=== PATIENT | male | born 1955 | race Caucasian/White ===

== ENCOUNTER 2019-04-10 05:38 | Inpatient (IN) | payer OTHER ==
[2019-04-10 06:48] LABS: HEMATOCRIT 42.5 % (37.9-51.0); HEMOGLOBIN 14.1 g/dL (13.5-17.0); MEAN CORPUSCULAR HEMOGLOBIN 29.2 pg (27.0-33.4); MEAN CORPUSCULAR HGB CONC 33.2 g/dL (32.0-36.0); MEAN CORPUSCULAR VOLUME 88 fl (80-97); PLATELET COUNT 233 10^3/uL (150-450); RED BLOOD COUNT 4.83 10^6/uL (4.35-5.55); RED CELL DISTRIBUTION WIDTH 14.7 % (11.5-14.0)
--- NOTE | 2019-04-10 06:52 | EKG REPORT ---
SEVERITY:- BORDERLINE ECG - SINUS TACHYCARDIA PROBABLE LEFT ATRIAL ABNORMALITY BORDERLINE T WAVE ABNORMALITIES : Confirmed by: Vasile Arias MD 10-Apr-2019 06:51:59
[2019-04-10] MEDS ORDERED: ERTAPENEM SODIUM INJ 1 GM VIAL IV ONE (07:08)
[2019-04-10 07:09] LABS: ABSOLUTE LYMPHOCYTES# (MANUAL) 1.8 10^3/uL (0.5-4.7); ABSOLUTE MONOCYTES # (MANUAL) 1.2 10^3/uL (0.1-1.4); BASOPHILS % (MANUAL) 1 % (0-2); EOSINOPHILS % (MANUAL) 0 % (0-6); LYMPHOCYTES % (MANUAL) 6 % (13-45); MONOCYTES % (MANUAL) 4 % (3-13); SEGMENTED NEUTROPHILS % (MAN) 89 % (42-78); TOTAL CELLS COUNTED 100
[2019-04-10] MEDS ORDERED: MORPHINE SULFATE 10 MG/ML INJ IV ONE ×2 (07:09→11:13)
[2019-04-10] MEDS ORDERED: RINGERS SOLUTION,LACTATED 1,000 ML IV ONE (07:09)
[2019-04-10] MEDS ORDERED: ONDANSETRON HCL INJ/PF 4 MG/2 ML SDV IV ONE ×2 (07:09→11:13)
[2019-04-10 07:11] LABS: OVALOCYTES SLIGHT; PLATELET COMMENT ADEQUATE; POIKILOCYTOSIS SLIGHT; TOXIC GRANULATION SLIGHT; TOXIC VACUOLATION PRESENT
[2019-04-10 07:13] LABS: WHITE BLOOD COUNT 30.4 10^3/uL (4.0-10.5)
--- NOTE | 2019-04-10 07:35 | ER Document Report ---
Entered by SANTINO KIRK SCRIBE 04/10/19 0640 Acting as scribe for:LACEY CALIX MD ED GI/ - General Chief Complaint: Abdominal Pain Stated Complaint: UPPER RIGHT ABDOMINAL PAIN Time Seen by Provider: 04/10/19 06:30 Primary Care Provider: TRISHA GLORIA MD [Primary Care Provider] - Follow up as needed Mode of Arrival: Ambulatory Information source: Patient Notes: This 63 year old male patient presents to the emergency department today with complaints of right upper quadrant abdominal pain. Patient states he began with abdominal cramping which began about 24 hours ago along with a few episodes of vomiting. Patient states the pain was initially located in his epigastrium and seems to have migrated over to the right upper quadrant now. Patient states lying on his right side exacerbates his pain. Patient had a temperature of 102.8 at about midnight last night but did not take anything for it. Patient denies diarrhea. Pertinent PMHx/PSHx: Type 2 diabetes (insulin dependent) - additional PMHx/PSHx not pertinent to this visit as recorded. PCP: Dr. Gloria TRAVEL OUTSIDE OF THE [place] IN LAST 30 DAYS: No - Related Data Allergies/Adverse Reactions: No Known Allergies Allergy (Verified 04/10/19 06:01) Past Medical History - General Information source: Patient - Social History Smoking Status: Former Smoker - quit in the mid Cigarette use (# per day): No Chew tobacco use (# tins/day): No Frequency of alcohol use: Occasional Drug Abuse: None Occupation: Business van owner operator Lives with: Family Family History: Reviewed & Not Pertinent Patient has suicidal ideation: No Patient has homicidal ideation: No - Past Medical History Cardiac Medical History: Reports: Hx DVT, Hx Hypercholesterolemia, Hx Hypertension Endocrine Medical History: Reports: Hx Diabetes Mellitus Type 2 Surgical Hx: Negative Review of Systems - Review of Systems Constitutional: See HPI, Fever - 102.8 EENT: No symptoms reported Cardiovascular: No symptoms reported Respiratory: No symptoms reported Gastrointestinal: See HPI, Abdominal pain, Nausea, Vomiting. denies: Diarrhea Genitourinary: No symptoms reported Male Genitourinary: No symptoms reported Musculoskeletal: No symptoms reported Skin: No symptoms reported Hematologic/Lymphatic: No symptoms reported Neurological/Psychological: No symptoms reported -: Yes All other systems reviewed and negative Physical Exam - Vital signs Vitals: Temp Pulse Resp BP Pulse Ox 98.6 F 119 H 20 98/56 L 94 04/10/19 06:01 04/10/19 06:01 04/10/19 06:01 04/10/19 06:01 04/10/19 06:01 - Notes Notes: Physical Exam: General: Alert, appears uncomfortable. HEENT: Normocephalic. Atraumatic. PERRL. Extraocular movements intact. Oropharynx clear. Neck: Supple. Non-tender. Respiratory: No respiratory distress. Clear and equal breath sounds bilaterally. Cardiovascular: Regular rate and rhythm. Abdominal: Obese, protuberant abdomen, mild right upper quadrant tenderness with palpation, moderate epigastric tenderness with palpation. No distension. Normal Bowel Sounds. Back: No gross abnormalities. Extremities: Moves all four extremities. Upper extremities: Normal inspection. Normal ROM. Lower extremities: Chronic discoloration of lower extremities with venous stasis changes bilaterally, trace lower extremity edema. Neurological: Normal cognition. AAOx4. Normal speech. Psychological: Normal affect. Normal Mood. Skin: see lower extremity exam Course - Vital Signs Vital signs: Temp Pulse Resp BP Pulse Ox 98.6 F 119 H 16 121/73 96 04/10/19 06:01 04/10/19 06:01 04/10/19 07:30 04/10/19 07:30 04/10/19 08:37 - Laboratory Result Diagrams: 04/10/19 06:35 04/10/19 07:05 Laboratory results interpreted by me: 04/10/19 04/10/19 04/10/19 06:21 06:35 07:05 WBC 30.4 H* RDW 14.7 H Seg Neuts % (Manual) 89 H Lymphocytes % (Manual) 6 L Abs Neuts (Manual) 27.1 H Abs Basophils (Manual) 0.3 H BUN 25 H Glucose 131 H POC Glucose 137 H Lipase 16.7 L Urine Protein Urine Glucose (UA) Urine Ketones Urine Blood 04/10/19 08:35 WBC RDW Seg Neuts % (Manual) Lymphocytes % (Manual) Abs Neuts (Manual) Abs Basophils (Manual) BUN Glucose POC Glucose Lipase Urine Protein 100 H Urine Glucose (UA) >=500 H Urine Ketones TRACE H Urine Blood SMALL H - Diagnostic Test Radiology reviewed: Image reviewed, Reports reviewed - Gallbladder ultrasound shows gallstones in the gallbladder neck. No gallbladder wall thickening or pericholecystic fluid. No filling defects. CT scan of the abdomen with IV con trast shows gallstones with mild inflammatory changes in the pericholecystic tissues. No other significant or acute findings are seen. - EKG Interpretation by Me EKG shows normal: Sinus rhythm, [place], Intervals, QRS Complexes. abnormal: ST-T Waves - Borderline T wave abnormalities Rate: Tachycardia - 113 P Waves: LAE - Consults Dr. Ornelas Consulted provider: will come to ER Dr. Huizar Time consulted: 11:10 Consulted provider: will come to ER Critical Care Note - Critical Care Note Total time excluding time spent on procedures (mins): 45 Discharge - Discharge Clinical Impression: Cholelithiasis and acute cholecystitis without obstruction Leukocytosis (leucocytosis) Qualifiers: Leukocytosis type: unspecified Qualified Code(s): D72.829 - Elevated white blood cell count, unspecified Fever Qualifiers: Fever type: unspecified Qualified Code(s): R50.9 - Fever, unspecified Condition: Fair Disposition: ADMITTED INPATIENT Admitting Provider: Gaye (Hospitalist) Unit Admitted: [facility]U Referrals: TRISHA GLORIA MD [Primary Care Provider] - Follow up as needed I personally performed the services described in the documentation, reviewed and edited the documentation which was dictated to the scribe in my presence, and it accurately records my words and actions.
[2019-04-10 07:43] LABS: ALBUMIN 3.8 g/dL (3.5-5.0); ALKALINE PHOSPHATASE 114 U/L (38-126); ANION GAP 11 (5-19); ASPARTATE AMINO TRANSFERASE 26 U/L (17-59); BILIRUBIN,TOTAL 0.7 mg/dL (0.2-1.3); BLOOD UREA NITROGEN 25 mg/dL (7-20); CALCIUM 8.9 mg/dL (8.4-10.2); CARBON DIOXIDE 27 mmol/L (22-30); CHLORIDE 101 mmol/L (98-107); CREATINE KINASE 62 U/L (55-170); GLUCOSE 131 mg/dL (75-110); POTASSIUM 4.1 mmol/L (3.6-5.0); TOTAL PROTEIN 7.1 g/dL (6.3-8.2)
[2019-04-10] MEDS ORDERED: NORMAL SALINE 1000 ML 1,000 ML IV ONE ×3 (08:28→10:13)
--- NOTE | 2019-04-10 08:31 | RADIOLOGY REPORT (SQ) ---
EXAM DESCRIPTION: U/S ABDOMEN LIMITED W/O DOP COMPLETED DATE/TIME: 04/10/2019 8:10 am REASON FOR STUDY: epigastric and RUQ abd pain w/N V COMPARISON: None TECHNIQUE: Dynamic and static grayscale images acquired of the abdomen and recorded on PACS. Additio nal selected color Doppler and spectral images recorded. LIMITATIONS: Study limited due to acoustical interference from fat or from air in the bowel. FINDINGS: PANCREAS: Obscured. LIVER: No masses. No dilated ducts. LIVER VASCULATURE: Normal directional flow of the main portal vein and hepatic veins. GALLBLADDER: Small gallstones in the gallbladder neck. Normal wall thickness. No pericholecystic flui d. ULTRASOUND-DETECTED MOORE'S SIGN: Negative. INTRAHEPATIC DUCTS AND COMMON DUCT:CBD and intrahepatic ducts normal caliber. No filling defects. INFERIOR VENA CAVA: Normal flow. AORTA: No aneurysm. RIGHT KIDNEY: Normal size. Normal echogenicity. No solid or suspicious masses. No hydronephrosis. No calcifications. PERITONEAL AND PLEURAL SPACES: No ascites or effusions. OTHER: No other significant finding. IMPRESSION: GALLSTONES. NO OTHER SIGNIFICANT FINDING IN THE VISUALIZED ABDOMEN. TECHNICAL DOCUMENTATION: JOB ID: [id number] 2010 [employer]- All Rights Reserved Reading location - IP/workstation name: [email or web address]
[2019-04-10 09:52] LABS: APPEARANCE,URINE SLIGHTLY-CLOUDY; BILIRUBIN,URINE NEGATIVE (NEGATIVE); COLOR,URINE YELLOW; GLUCOSE, URINE >=500 mg/dL (NEGATIVE); KETONES,URINE TRACE mg/dL (NEGATIVE); LEUKOCYTE ESTERASE,URINE NEGATIVE (NEGATIVE); NITRITE,URINE NEGATIVE (NEGATIVE); PROTEIN,URINE 100 mg/dL (NEGATIVE); URINE SPECIFIC GRAVITY 1.021; UROBILINOGEN,URINE NEGATIVE mg/dL (<2.0)
--- NOTE | 2019-04-10 10:35 | RADIOLOGY REPORT (SQ) ---
EXAM DESCRIPTION: CT ABD/PELVIS WITH IV ONLY COMPLETED DATE/TIME: 04/10/2019 9:57 am REASON FOR STUDY: Leukocytosis, right upper quadrant abdominal pain COMPARISON: Ultrasound dated 04/10/2019. TECHNIQUE: CT scan of the abdomen and pelvis performed using helical scanning technique with dynamic intravenous contrast injection. No oral contrast. Images reviewed with lung, soft tissue, and bone windows. Reconstructed coronal and sagittal MPR images reviewed. Delayed images for evaluation of the urinary system also acquired. All images stored on PACS. All CT scanners at this facility use dose modulation, iterative reconstruction, and/or weight based d osing when appropriate to reduce radiation dose to as low as reasonably achievable (ALARA). [facility]: Dose Right [facility]: CareDose [facility]: Dose Right [facility]: Teradose 4D [facility]: Mailcloud CONTRAST TYPE AND DOSE: contrast/concentration: Isovue 350.00 mg/ml; Total Contrast Delivered: 100.0 ml; Total Saline Delivered: 59.1 ml RENAL FUNCTION: BUN 25 creatinine 1.22. RADIATION DOSE: CT Rad equipment meets quality standard of care and radiation dose reduction techniq ues were employed. CTDIvol: 18.4 - 19.8 mGy. DLP: 2270 mGy-cm.. LIMITATIONS: None. FINDINGS: LOWER CHEST: No significant findings. No nodules or infiltrates. LIVER: Normal size. No masses. No dilated ducts. SPLEEN: Normal size. No focal lesions. PANCREAS: No masses. No significant calcifications. No adjacent inflammation or peripancreatic fluid collections. Pancreatic duct not dilated. GALLBLADDER: Faint tiny calculi near the gallbladder neck. There is slightly hazy appearance of the pericholecystic tissues. No discrete fluid. ADRENAL GLANDS: No significant masses or asymmetry. RIGHT KIDNEY AND URETER: No solid masses. No significant calcifications. No hydronephrosis or hyd roureter. LEFT KIDNEY AND URETER: No solid masses. No significant calcifications. No hydronephrosis or hydr oureter. AORTA AND VESSELS: No aneurysm. No dissection. Renal arteries, SMA, celiac without stenosis. RETROPERITONEUM: No retroperitoneal adenopathy, hemorrhage or masses. BOWEL AND PERITONEAL CAVITY: No masses or inflammatory changes. No free fluid or peritoneal masses. APPENDIX: Normal. PELVIS: No mass. No free fluid. Normal bladder. ABDOMINAL WALL: No masses. No hernias. BONES: No significant or acute findings. OTHER: No other significant finding. IMPRESSION: 1. GALLSTONES. THERE IS SUGGESTION OF MILD INFLAMMATORY CHANGES IN THE PERICHOLECYSTIC TISSUES. MAY CONSIDER HEPATOBILIARY STUDY TO EVALUATE FOR POSSIBLE CHOLECYSTITIS. 2. NO OTHER SIGNIFICANT OR ACUTE FINDING IN THE ABDOMEN OR PELVIS ON CT SCAN WITH IV CONTRAST. TECHNICAL DOCUMENTATION: JOB ID: [id number] Quality ID # [id number]: Final reports with documentation of one or more dose reduction techniques (e.g., Au tomated exposure control, adjustment of the mA and/or kV according to patient size, use of iterative reconstruction technique) 2010 [employer]- All Rights Reserved Reading location - IP/workstation name: [email or web address]
--- NOTE | 2019-04-10 11:13 | PDOC CONSULTATION ---
Consultation Consult Date: 04/10/19 Provider Consulted: YASMIN ROSARIO Consult reason:: cholecystitis History of Present Illness Admission Date/PCP: TRISHA GLORIA MD History of Present Illness: KAILEE KIRK is a 63 year old male Past Medical History Cardiac Medical History: Reports: DVT, Hyperlipidema, Hypertension Endocrine Medical History: Reports: Diabetes Mellitus Type 2 Social History Lives with: Family Smoking Status: Former Smoker - quit in the mid Electronic Cigarette use?: No Family History Family History: Reviewed & Not Pertinent Parental Family History Reviewed: No Children Family History Reviewed: NA Sibling(s) Family History Reviewed.: NA Medication/Allergy Home Medications: Amlodipine Besylate 5 mg PO DAILY 07/01/14 Canagliflozin [Invokana] 300 mg PO DAILY 07/01/14 Cephalexin Monohydrate [Keflex 500 mg Capsule] 500 mg PO QID #28 capsule 07/01/14 Insulin Glargine,Hum.rec.anlog [Lantus] 2 units SUBCUT 07/01/14 Lisinopril/Hydrochlorothiazide [Lisinopril-Hctz 20-12.5 mg Tab] 12.5 mg PO DAILY 07/01/14 Metformin HCl [Glucophage] 1,000 mg PO DAILY 07/01/14 Rivaroxaban [Xarelto 10 mg Tablet] 10 mg PO BID 07/01/14 Allergies/Adverse Reactions: No Known Allergies Allergy (Verified 04/10/19 06:01) Review of Systems Constitutional: PRESENT: fever(s) Eyes: ABSENT: as per HPI, visual disturbances, other Ears: ABSENT: as per HPI, hearing changes, other Nose, Mouth, and Throat: ABSENT: as per HPI, headache(s), mouth pain, sore throat, vertigo, other Breasts: ABSENT: as per HPI, other Cardiovascular: ABSENT: as per HPI, chest pain, dyspnea on exertion, edema, orthropnea, palpitations, other Respiratory: ABSENT: as per HPI, cough, dyspnea, hemoptysis, sputum, other Genitourinary: ABSENT: as per HPI, difficulty urinating, dysuria, hematuria, nocturia, other Musculoskeletal: ABSENT: as per HPI, back pain, deformity, joint swelling, muscle weakness, other Integumentary: ABSENT: as per HPI, diaphoresis, erythema, lesions, pruritus, rash, wounds, other Neurological: ABSENT: as per HPI, abnormal gait, abnormal movements, abnormal speech, confusion, convulsions, dizziness, focal weakness, frequent falls, lack of coordination, memory loss, numbness, paresthesias, restless legs, syncope, tingling, tremor(s), vertigo, weakness, other Psychiatric: ABSENT: as per HPI, anxiety, depression, hallucinations, homidical ideation, suicidal ideation, other Endocrine: ABSENT: as per HPI, cold intolerance, flushing, heat intolerance, menstrual abnormalities, polydipsia, polyphagia, polyuria, other Hematologic/Lymphatic: ABSENT: as per HPI, easy bleeding, easy bruising, lymphadenopathy, other Allergic/Immunologic: ABSENT: as per HPI, seasonal rhinorrhea, other Physical Exam Vital Signs: Temp Pulse Resp BP Pulse Ox 98.6 F 119 H 16 121/73 96 04/10/19 06:01 04/10/19 06:01 04/10/19 07:30 04/10/19 07:30 04/10/19 08:37 Intake & Output 04/09/19 04/10/19 04/11/19 06:59 06:59 06:59 Intake Total 1000 Balance 1000 Weight 108.6 kg General appearance: PRESENT: no acute distress Head exam: PRESENT: normocephalic Eye exam: PRESENT: EOMI Ear exam: PRESENT: normal external ear exam Mouth exam: PRESENT: moist Neck exam: PRESENT: full ROM Respiratory exam: PRESENT: clear to auscultation blake Cardiovascular exam: PRESENT: RRR Pulses: PRESENT: normal radial pulses, normal femoral pulses Vascular exam: PRESENT: normal capillary refill Breast: PRESENT: Normal GI/Abdominal exam: PRESENT: soft, tenderness - ruq and epigastriim Rectal exam: PRESENT: deferred Extremities exam: PRESENT: full ROM Musculoskeletal exam: PRESENT: full ROM Neurological exam: PRESENT: alert, awake, oriented to person Psychiatric exam: PRESENT: appropriate affect Skin exam: PRESENT: dry Results Laboratory Results: 04/10/19 06:35 04/10/19 07:05 04/10/19 04/10/19 04/10/19 06:35 06:35 07:05 WBC 30.4 H* RBC 4.83 Hgb 14.1 Hct 42.5 MCV 88 MCH 29.2 MCHC 33.2 RDW 14.7 H Plt Count 233 Seg Neutrophils % Not Reportable Sodium Cancelled 138.7 Potassium Cancelled 4.1 Chloride Cancelled 101 Carbon Dioxide Cancelled 27 Anion Gap Cancelled 11 BUN Cancelled 25 H Creatinine Cancelled 1.22 Est GFR ( Amer) Cancelled > 60 Est GFR (Non-Af Amer) Cancelled Glucose Cancelled 131 H Calcium Cancelled 8.9 Total Bilirubin Cancelled 0.7 AST Cancelled 26 Alkaline Phosphatase Cancelled 114 Total Protein Cancelled 7.1 Albumin Cancelled 3.8 Lipase Cancelled 16.7 L Urine Color Urine Appearance Urine pH Ur Specific [place] Urine Protein Urine Glucose (UA) Urine Ketones Urine Blood Urine Nitrite Ur Leukocyte Esterase Urine WBC (Auto) Urine RBC (Auto) 04/10/19 08:35 WBC RBC Hgb Hct MCV MCH MCHC RDW Plt Count Seg Neutrophils % Sodium Potassium Chloride Carbon Dioxide Anion Gap BUN Creatinine Est GFR ( Amer) Est GFR (Non-Af Amer) Glucose Calcium Total Bilirubin AST Alkaline Phosphatase Total Protein Albumin Lipase Urine Color YELLOW Urine Appearance SLIGHTLY-CLOUDY Urine pH 5.0 Ur Specific [place] 1.021 Urine Protein 100 H Urine Glucose (UA) >=500 H Urine Ketones TRACE H Urine Blood SMALL H Urine Nitrite NEGATIVE Ur Leukocyte Esterase NEGATIVE Urine WBC (Auto) 3 Urine RBC (Auto) 2 04/10/19 04/10/19 04/10/19 06:35 07:05 07:05 Creatine Kinase Cancelled 62 Troponin I < 0.012 Impressions: Abdomen Ultrasound 04/10/19 06:40 IMPRESSION: GALLSTONES. NO OTHER SIGNIFICANT FINDING IN THE VISUALIZED ABDOMEN. Abdomen/Pelvis CT 04/10/19 09:16 IMPRESSION: 1. GALLSTONES. THERE IS SUGGESTION OF MILD INFLAMMATORY CHANGES IN THE PERICHOLECYSTIC TISSUES. MAY CONSIDER HEPATOBILIARY STUDY TO EVALUATE FOR POSSIBLE CHOLECYSTITIS. 2. NO OTHER SIGNIFICANT OR ACUTE FINDING IN THE ABDOMEN OR PELVIS ON CT SCAN WITH IV CONTRAST. Assessment & Plan - Plan Summary Plan Summary: morbidly obese male, diabetic with epigastric abd pain and fever to [address] shows min thickened gallbladder with some inflammation wbc 30k pt takes xeralto for hx of dvt recommend since min sxs currently and pt on xeralto, would hold off on surgery at this time due to high bleeding risk will start iv abx will ask medicine dept to admit and due to the diabetes
[2019-04-10] MEDS ORDERED: ACETAMINOPHEN 650 MG SUPP.RECT PR ONE (11:14)
[2019-04-10] MEDS ORDERED: TEMAZEPAM 7.5 MG CAPSULE PO PRN (12:56)
[2019-04-10] MEDS ORDERED: DEXTROSE 40% GEL 15 GM TUBE PO PRN ×2 (12:56)
[2019-04-10] MEDS ORDERED: ONDANSETRON HCL INJ/PF 4 MG/2 ML SDV IV PRN (12:56)
[2019-04-10] MEDS ORDERED: IPRATROPIUM/ALBUTEROL 0.5-2.5 MG/3 ML AMPUL NEB PRN (12:56)
[2019-04-10] MEDS ORDERED: DEXTROSE 50%-WATER 25 GM/50 ML DISP.SYRIN IV PRN ×2 (12:56)
[2019-04-10] MEDS ORDERED: RINGERS SOLUTION,LACTATED 1,000 ML IV PRN (12:56)
[2019-04-10] MEDS ORDERED: GLUCAGON,HUMAN RECOMB 1 MG INJ SUBCUT PRN (12:56)
--- NOTE | 2019-04-10 13:19 | PDOC H&P ---
History of Present Illness Admission Date/PCP: 04/10/19 11:24 TRISHA GLORIA MD Patient complains of: Abdominal pain, nausea and generalized malaise History of Present Illness: KAILEE KIRK is a 63 year old male Presents to the emergency room with abdominal complaints as above. He said he was feeling well till yesterday. He started having abdominal pain. He has been unable to eat much. He also has associated nausea and vomiting. Patient denies any prior such pain in the past. He came to the emergency room where he was found to be tachycardic and ultimately had imaging studies done which revealed cholelithiasis with CT scan revealing possible inflammation. Patient's white count was found to be 30,000 and was tachycardic but really afebrile. His blood pressure was borderline low. He has been treated with intravenous fluids and has received Invanz Past Medical History Cardiac Medical History: Reports: DVT, Hyperlipidema, Hypertension Endocrine Medical History: Reports: Diabetes Mellitus Type 2 Past Surgical History Past Surgical History: Reports: None Social History Information Source: Patient Lives with: Family Smoking Status: Former Smoker - quit in the mid Electronic Cigarette use?: No Frequency of Alcohol Use: None Hx Recreational Drug Use: No Hx Prescription Drug Abuse: No - Advance Directive Resuscitation Status: Full Code Family History Family History: Reviewed & Not Pertinent Parental Family History Reviewed: No Children Family History Reviewed: Yes Sibling(s) Family History Reviewed.: Yes Medication/Allergy Home Medications: Amlodipine Besylate 5 mg PO DAILY 07/01/14 Canagliflozin [Invokana] 300 mg PO DAILY 07/01/14 Cephalexin Monohydrate [Keflex 500 mg Capsule] 500 mg PO QID #28 capsule 07/01/14 Insulin Glargine,Hum.rec.anlog [Lantus] 2 units SUBCUT 07/01/14 Lisinopril/Hydrochlorothiazide [Lisinopril-Hctz 20-12.5 mg Tab] 12.5 mg PO DAILY 07/01/14 Metformin HCl [Glucophage] 1,000 mg PO DAILY 07/01/14 Rivaroxaban [Xarelto 10 mg Tablet] 10 mg PO BID 07/01/14 Allergies/Adverse Reactions: No Known Allergies Allergy (Verified 04/10/19 06:01) Review of Systems Constitutional: ABSENT: chills, fever(s), headache(s), weight gain, weight loss Eyes: ABSENT: visual disturbances Ears: ABSENT: hearing changes Cardiovascular: ABSENT: chest pain, dyspnea on exertion, edema, orthropnea, palpitations Respiratory: ABSENT: cough, hemoptysis Gastrointestinal: PRESENT: as per HPI Genitourinary: ABSENT: dysuria, hematuria Musculoskeletal: ABSENT: joint swelling Integumentary: ABSENT: rash, wounds Neurological: ABSENT: abnormal gait, abnormal speech, confusion, dizziness, focal weakness, syncope Psychiatric: ABSENT: anxiety, depression, homidical ideation, suicidal ideation Endocrine: ABSENT: cold intolerance, heat intolerance, polydipsia, polyuria Hematologic/Lymphatic: ABSENT: easy bleeding, easy bruising Physical Exam Vital Signs: Temp Pulse Resp BP Pulse Ox 99.3 F 119 H 18 115/60 93 04/10/19 12:44 04/10/19 06:01 04/10/19 12:00 04/10/19 09:26 04/10/19 12:00 Intake & Output 04/09/19 04/10/19 04/11/19 06:59 06:59 06:59 Intake Total 1999 Balance 1999 Weight 108.6 kg General appearance: PRESENT: no acute distress, well-developed, well-nourished Head exam: PRESENT: atraumatic, normocephalic Eye exam: PRESENT: conjunctiva pink, PERRLA. ABSENT: scleral icterus Mouth exam: PRESENT: tongue midline Neck exam: ABSENT: carotid bruit, JVD, lymphadenopathy, thyromegaly Respiratory exam: PRESENT: clear to auscultation blake. ABSENT: rales, rhonchi, wheezes Cardiovascular exam: PRESENT: RRR, +S1, +S2. ABSENT: diastolic murmur, rubs, systolic murmur Pulses: PRESENT: normal dorsalis pedis pul Vascular exam: PRESENT: normal capillary refill GI/Abdominal exam: PRESENT: normal bowel sounds, soft. ABSENT: distended, guarding, mass, organolmegaly, rebound Rectal exam: PRESENT: deferred Extremities exam: PRESENT: full ROM. ABSENT: calf tenderness, clubbing, pedal edema Neurological exam: PRESENT: alert, awake, oriented to person, oriented to place, oriented to time, oriented to situation, CN II-XII grossly intact. ABSENT: motor sensory deficit Psychiatric exam: PRESENT: appropriate affect, normal mood. ABSENT: homicidal ideation, suicidal ideation Skin exam: PRESENT: dry, intact, warm. ABSENT: cyanosis, rash Results Laboratory Results: 04/10/19 06:35 04/10/19 07:05 04/10/19 04/10/19 04/10/19 06:35 06:35 07:05 WBC 30.4 H* RBC 4.83 Hgb 14.1 Hct 42.5 MCV 88 MCH 29.2 MCHC 33.2 RDW 14.7 H Plt Count 233 Seg Neutrophils % Not Reportable Sodium Cancelled 138.7 Potassium Cancelled 4.1 Chloride Cancelled 101 Carbon Dioxide Cancelled 27 Anion Gap Cancelled 11 BUN Cancelled 25 H Creatinine Cancelled 1.22 Est GFR ( Amer) Cancelled > 60 Est GFR (Non-Af Amer) Cancelled Glucose Cancelled 131 H Calcium Cancelled 8.9 Total Bilirubin Cancelled 0.7 AST Cancelled 26 Alkaline Phosphatase Cancelled 114 Total Protein Cancelled 7.1 Albumin Cancelled 3.8 Lipase Cancelled 16.7 L Urine Color Urine Appearance Urine pH Ur Specific [place] Urine Protein Urine Glucose (UA) Urine Ketones Urine Blood Urine Nitrite Ur Leukocyte Esterase Urine WBC (Auto) Urine RBC (Auto) 04/10/19 08:35 WBC RBC Hgb Hct MCV MCH MCHC RDW Plt Count Seg Neutrophils % Sodium Potassium Chloride Carbon Dioxide Anion Gap BUN Creatinine Est GFR ( Amer) Est GFR (Non-Af Amer) Glucose Calcium Total Bilirubin AST Alkaline Phosphatase Total Protein Albumin Lipase Urine Color YELLOW Urine Appearance SLIGHTLY-CLOUDY Urine pH 5.0 Ur Specific [place] 1.021 Urine Protein 100 H Urine Glucose (UA) >=500 H Urine Ketones TRACE H Urine Blood SMALL H Urine Nitrite NEGATIVE Ur Leukocyte Esterase NEGATIVE Urine WBC (Auto) 3 Urine RBC (Auto) 2 04/10/19 04/10/19 04/10/19 06:35 07:05 07:05 Creatine Kinase Cancelled 62 Troponin I < 0.012 Impressions: Abdomen Ultrasound 04/10/19 06:40 IMPRESSION: GALLSTONES. NO OTHER SIGNIFICANT FINDING IN THE VISUALIZED ABDOMEN. Abdomen/Pelvis CT 04/10/19 09:16 IMPRESSION: 1. GALLSTONES. THERE IS SUGGESTION OF MILD INFLAMMATORY CHANGES IN THE PERICHOLECYSTIC TISSUES. MAY CONSIDER HEPATOBILIARY STUDY TO EVALUATE FOR POSSIBLE CHOLECYSTITIS. 2. NO OTHER SIGNIFICANT OR ACUTE FINDING IN THE ABDOMEN OR PELVIS ON CT SCAN WITH IV CONTRAST. Assessment and Plan - Diagnosis (1) SIRS due to infectious process without acute organ dysfunction Is this a current diagnosis for this admission?: Yes Plan: Presents in addition likely secondary to his acute infection. Patient does have cholecystitis. He does need surgical intervention and he has been evaluated by general surgery however because patient is on Xarelto at this is been deferred for now. We will monitor patient. He will be given IV fluids judiciously as well as broad-spectrum antibiotics. He has received a dose of Invanz in the ER (2) Type 2 diabetes mellitus Qualifiers: Diabetes mellitus terminologist insulin use: unspecified residential insulin use s tatus Is this a current diagnosis for this admission?: Yes Plan: His blood sugar is actually well controlled, currently in the 130s. As patient is to be kept n.p.o. we will keep a close eye on this. He will be placed on sliding scale insulin judiciously. If needed he will be started on D5 but will hold off for now (3) Cholelithiasis and acute cholecystitis without obstruction Is this a current diagnosis for this admission?: Yes Plan: As per imaging studies. Patient is awaiting skilled intervention which is currently being deferred due to his history of Xarelto use (4) Fever Qualifiers: Fever type: unspecified Qualified Code(s): R50.9 - Fever, unspecified Is this a current diagnosis for this admission?: Yes (5) History of DVT (deep vein thrombosis) Is this a current diagnosis for this admission?: Yes Plan: Patient is a history of DVT about 4 years ago and he has since been on anticoagulants since then. He does say this was provoked by a prolonged flight to [place] however he does have underlying history of possible hereditary disease. Only had 1 episode of DVT Anticoagulant will be held pending surgical intervention - Time Time Spent with patient: 35 or more minutes Medications reviewed and adjusted accordingly: Yes Anticipated discharge: Home Within: within 72 hours - Inpatient Certification Based on my medical assessment, after consideration of the patient's comorbidities, presenting symptoms, or acuity I expect that the services needed warrant INPATIENT care.: Yes Medical Necessity: Need For IV Fluids, Need for Surgery, Risk of Diagnosis Which Will Require Inpatient Eval/Care/Monitoring
[2019-04-10 13:22] LABS: PATH REVIEW PATHOLOGIST REVIEWED
--- NOTE | 2019-04-10 13:29 | ADVANCED CARE ---
- Diagnosis (1) SIRS due to infectious process without acute organ dysfunction Diagnosis Current: Yes (2) Type 2 diabetes mellitus Diagnosis Current: Yes (3) Cholelithiasis and acute cholecystitis without obstruction Diagnosis Current: Yes (4) Fever Diagnosis Current: Yes (5) History of DVT (deep vein thrombosis) Diagnosis Current: Yes Attendance: Spouse and Patient Resuscitation Status: Full Code Discussion: Advance care wishes, resuscitation and explanation clearly explained to patient and . They understand the discussion.. They reiterate the patient is a full code Time Spent: 16-minute
[2019-04-10] MEDS: MEROPENEM 1 GM in NORMAL SALINE 50 ML IV SCH (17:42)
[2019-04-10] MEDS: DEXTROSE 5%-LACTATED RINGERS 1,000 ML IV PRN (19:55)
[2019-04-11] MEDS: INSULIN REG, HUMAN 100 UNIT/ML 3 ML VIAL (PYX) SUBCUT SCH ×4 (00:21→18:36)
[2019-04-11] MEDS: MEROPENEM 1 GM in NORMAL SALINE 50 ML IV SCH ×3 (01:32→17:18)
[2019-04-11 04:54] LABS: HEMATOCRIT 37.7 % (37.9-51.0); HEMOGLOBIN 12.7 g/dL (13.5-17.0); MEAN CORPUSCULAR HEMOGLOBIN 29.2 pg (27.0-33.4); MEAN CORPUSCULAR HGB CONC 33.7 g/dL (32.0-36.0); MEAN CORPUSCULAR VOLUME 87 fl (80-97); PLATELET COUNT 198 10^3/uL (150-450); RED BLOOD COUNT 4.34 10^6/uL (4.35-5.55)
[2019-04-11 05:04] LABS: ALBUMIN 3.2 g/dL (3.5-5.0); ALKALINE PHOSPHATASE 111 U/L (38-126); ANION GAP 13 (5-19); ASPARTATE AMINO TRANSFERASE 25 U/L (17-59); BILIRUBIN,DIRECT 0.4 mg/dL (0.0-0.4); BILIRUBIN,TOTAL 0.6 mg/dL (0.2-1.3); BLOOD UREA NITROGEN 17 mg/dL (7-20); CALCIUM 8.5 mg/dL (8.4-10.2); CARBON DIOXIDE 24 mmol/L (22-30); CHLORIDE 104 mmol/L (98-107); GLUCOSE 127 mg/dL (75-110); TOTAL PROTEIN 6.3 g/dL (6.3-8.2)
[2019-04-11 05:23] LABS: ABSOLUTE LYMPHOCYTES# (MANUAL) 2.2 10^3/uL (0.5-4.7); ABSOLUTE MONOCYTES # (MANUAL) 1.5 10^3/uL (0.1-1.4); BASOPHILS % (MANUAL) 0 % (0-2); EOSINOPHILS % (MANUAL) 0 % (0-6); LYMPHOCYTES % (MANUAL) 7 % (13-45); MONOCYTES % (MANUAL) 5 % (3-13); SEGMENTED NEUTROPHILS % (MAN) 88 % (42-78); TOTAL CELLS COUNTED 100
[2019-04-11 05:24] LABS: PLATELET COMMENT ADEQUATE; RBC MORPHOLOGY COMMENT NORMO-CYTIC/CHROMIC
[2019-04-11 05:25] LABS: WHITE BLOOD COUNT 30.8 10^3/uL (4.0-10.5)
[2019-04-11] MEDS: DEXTROSE 5%-LACTATED RINGERS 1,000 ML IV PRN ×2 (06:05→17:18)
--- NOTE | 2019-04-11 08:58 | PDOC PROGRESS REPORT ---
Subjective Progress Note for:: 04/11/19 Subjective:: 63-year-old male with acute cholecystitis. The patient is on Xarelto. His last dose of Xarelto was yesterday morning. He reports that his abdominal pain has significantly improved overnight. Currently he is wearing his BiPAP. He does report abdominal pain, but denies vomiting, hematochezia, melena, hematemesis, headache, fevers, chills, shortness of breath, blurry vision, orthostasis. Reason For Visit: SIRS,ACUTE CHOLECYSTITIS Physical Exam Vital Signs: Temp Pulse Resp BP Pulse Ox 98.6 F 105 H 16 142/74 H 98 04/11/19 07:19 04/11/19 07:19 04/11/19 07:19 04/11/19 07:19 04/11/19 07:19 Intake & Output 04/10/19 04/11/19 04/12/19 06:59 06:59 06:59 Intake Total 3010 2000 Output Total 1650 Balance 1360 2000 Weight 108.6 kg 110.6 kg General appearance: PRESENT: no acute distress, obese Eye exam: PRESENT: EOMI, PERRLA. ABSENT: scleral icterus Mouth exam: PRESENT: moist, neck supple Neck exam: ABSENT: meningismus, tenderness, thyromegaly, tracheal deviation Respiratory exam: PRESENT: unlabored. ABSENT: chest wall tenderness, tachypnea Cardiovascular exam: PRESENT: tachycardia - Mild Vascular exam: PRESENT: normal capillary refill GI/Abdominal exam: PRESENT: soft, tenderness - Mild tenderness in the epigastrium and right upper quadrant.. ABSENT: distended, firm, guarding, rebound, rigid Rectal exam: PRESENT: deferred Extremities exam: ABSENT: clubbing Musculoskeletal exam: ABSENT: deformity Neurological exam: PRESENT: alert, awake, oriented to person, oriented to place, oriented to time, oriented to situation, CN II-XII grossly intact. ABSENT: motor sensory deficit Psychiatric exam: ABSENT: agitated, anxious, depressed Focused psych exam: ABSENT: delusional Skin exam: ABSENT: cyanosis, erythema, jaundice Results Laboratory Results: 04/11/19 04:01 04/11/19 04:01 04/10/19 04/10/19 04/11/19 08:35 14:39 04:01 WBC 30.8 H* RBC 4.34 L Hgb 12.7 L Hct 37.7 L MCV 87 MCH 29.2 MCHC 33.7 RDW 14.0 Plt Count 198 Seg Neutrophils % Not Reportable Sodium Potassium Chloride Carbon Dioxide Anion Gap BUN Creatinine Est GFR ( Amer) Glucose Lactic Acid 0.9 Calcium Total Bilirubin AST Alkaline Phosphatase Total Protein Albumin Urine Color YELLOW Urine Appearance SLIGHTLY-CLOUDY Urine pH 5.0 Ur Specific [place] 1.021 Urine Protein 100 H Urine Glucose (UA) >=500 H Urine Ketones TRACE H Urine Blood SMALL H Urine Nitrite NEGATIVE Ur Leukocyte Esterase NEGATIVE Urine WBC (Auto) 3 Urine RBC (Auto) 2 04/11/19 04:01 WBC RBC Hgb Hct MCV MCH MCHC RDW Plt Count Seg Neutrophils % Sodium 140.7 Potassium 4.0 Chloride 104 Carbon Dioxide 24 Anion Gap 13 BUN 17 Creatinine 0.83 Est GFR ( Amer) > 60 Glucose 127 H Lactic Acid Calcium 8.5 Total Bilirubin 0.6 AST 25 Alkaline Phosphatase 111 Total Protein 6.3 Albumin 3.2 L Urine Color Urine Appearance Urine pH Ur Specific [place] Urine Protein Urine Glucose (UA) Urine Ketones Urine Blood Urine Nitrite Ur Leukocyte Esterase Urine WBC (Auto) Urine RBC (Auto) 04/10/19 04/10/19 04/10/19 06:35 07:05 07:05 Creatine Kinase Cancelled 62 Troponin I < 0.012 Impressions: Abdomen Ultrasound 04/10/19 06:40 IMPRESSION: GALLSTONES. NO OTHER SIGNIFICANT FINDING IN THE VISUALIZED ABDOMEN. Abdomen/Pelvis CT 04/10/19 09:16 IMPRESSION: 1. GALLSTONES. THERE IS SUGGESTION OF MILD INFLAMMATORY CHANGES IN THE PERICHOLECYSTIC TISSUES. MAY CONSIDER HEPATOBILIARY STUDY TO EVALUATE FOR POSSIBLE CHOLECYSTITIS. 2. NO OTHER SIGNIFICANT OR ACUTE FINDING IN THE ABDOMEN OR PELVIS ON CT SCAN WITH IV CONTRAST. Assessment & Plan - Diagnosis (1) Cholelithiasis and acute cholecystitis without obstruction Is this a current diagnosis for this admission?: Yes - Plan Summary Plan Summary: 63-year-old male admitted with acute cholecystitis. The patient's last dose of Xarelto was the morning of 04/10/2019. His Xarelto is on hold, in anticipation of surgical intervention. Continue n.p.o. status. Continue with supportive care. Plan for surgical intervention as soon as tomorrow afternoon. Continue antibiotics. Will follow.
[2019-04-11] MEDS: PANTOPRAZOLE SODIUM 40 MG VIAL IV SCH (09:57)
[2019-04-11] MEDS ORDERED: ERTAPENEM SODIUM 1 GM in NORMAL SALINE 50 ML IV SCH (10:00)
[2019-04-11] MEDS ORDERED: ACETAMINOPHEN 325 MG TABLET PO PRN (12:35)
--- NOTE | 2019-04-11 12:47 | PDOC PROGRESS REPORT ---
Subjective Progress Note for:: 04/11/19 Subjective:: Patient seen and examined. He remains hemodynamically stable. Complains of occasional back pain as well as abdominal pain. Surgery is still being planned for possibly tomorrow. Reason For Visit: SIRS,ACUTE CHOLECYSTITIS Physical Exam Vital Signs: Temp Pulse Resp BP Pulse Ox 98.6 F 105 H 16 142/74 H 98 04/11/19 07:19 04/11/19 07:19 04/11/19 07:19 04/11/19 07:19 04/11/19 07:19 Intake & Output 04/10/19 04/11/19 04/12/19 06:59 06:59 06:59 Intake Total 3010 2437 Output Total 1650 Balance 1360 2437 Weight 108.6 kg 110.6 kg General appearance: PRESENT: no acute distress, obese, well-nourished Head exam: PRESENT: atraumatic, normocephalic Eye exam: PRESENT: conjunctiva pink, EOMI, PERRLA. ABSENT: scleral icterus Ear exam: PRESENT: normal external ear exam Mouth exam: PRESENT: moist, tongue midline Neck exam: ABSENT: carotid bruit, JVD, lymphadenopathy, thyromegaly Respiratory exam: PRESENT: clear to auscultation blake. ABSENT: rales, rhonchi, wheezes Cardiovascular exam: PRESENT: RRR, +S1, +S2. ABSENT: diastolic murmur, rubs, systolic murmur GI/Abdominal exam: PRESENT: normal bowel sounds, soft, tenderness - Mild. ABSENT: distended, guarding, mass, organolmegaly Rectal exam: PRESENT: deferred Extremities exam: PRESENT: full ROM. ABSENT: calf tenderness, clubbing, pedal edema Neurological exam: PRESENT: alert, awake, oriented to person, oriented to place, oriented to time, oriented to situation, CN II-XII grossly intact. ABSENT: motor sensory deficit Psychiatric exam: PRESENT: appropriate affect, normal mood. ABSENT: homicidal ideation, suicidal ideation Skin exam: PRESENT: dry, intact, warm. ABSENT: cyanosis, rash Results Laboratory Results: 04/11/19 04:01 04/11/19 04:01 04/10/19 04/11/19 04/11/19 14:39 04:01 04:01 WBC 30.8 H* RBC 4.34 L Hgb 12.7 L Hct 37.7 L MCV 87 MCH 29.2 MCHC 33.7 RDW 14.0 Plt Count 198 Seg Neutrophils % Not Reportable Sodium 140.7 Potassium 4.0 Chloride 104 Carbon Dioxide 24 Anion Gap 13 BUN 17 Creatinine 0.83 Est GFR ( Amer) > 60 Glucose 127 H Lactic Acid 0.9 Calcium 8.5 Total Bilirubin 0.6 AST 25 Alkaline Phosphatase 111 Total Protein 6.3 Albumin 3.2 L 04/10/19 04/10/19 04/10/19 06:35 07:05 07:05 Creatine Kinase Cancelled 62 Troponin I < 0.012 Impressions: Abdomen Ultrasound 04/10/19 06:40 IMPRESSION: GALLSTONES. NO OTHER SIGNIFICANT FINDING IN THE VISUALIZED ABDOMEN. Abdomen/Pelvis CT 04/10/19 09:16 IMPRESSION: 1. GALLSTONES. THERE IS SUGGESTION OF MILD INFLAMMATORY CHANGES IN THE PERICHOLECYSTIC TISSUES. MAY CONSIDER HEPATOBILIARY STUDY TO EVALUATE FOR POSSIBLE CHOLECYSTITIS. 2. NO OTHER SIGNIFICANT OR ACUTE FINDING IN THE ABDOMEN OR PELVIS ON CT SCAN WITH IV CONTRAST. Assessment and Plan - Diagnosis (1) SIRS due to infectious process without acute organ dysfunction Is this a current diagnosis for this admission?: Yes Plan: We will continue with broad-spectrum antibiotics, intravenous fluids as well as supportive care (2) Type 2 diabetes mellitus Qualifiers: Diabetes mellitus senior care insulin use: unspecified senior care insulin use status Is this a current diagnosis for this admission?: Yes Plan: Continue IV fluid with dextrose and lactated Ringer's as well as sliding scale insulin coverage (3) Cholelithiasis and acute cholecystitis without obstruction Is this a current diagnosis for this admission?: Yes Plan: Plan is for the OR possibly in a.m. (4) Fever Qualifiers: Fever type: unspecified Qualified Code(s): R50.9 - Fever, unspecified Is this a current diagnosis for this admission?: Yes (5) History of DVT (deep vein thrombosis) Is this a current diagnosis for this admission?: Yes Plan: Xarelto continues to be on hold with the last dosage on April 08 - Plan Summary Summary: Patient also possibly needs a sleep study test as he appears to have sleep apnea. He has been placed on CPAP. - Time Time Spent with patient: 15-24 minutes Anticipated discharge: Home
[2019-04-11] MEDS: ATORVASTATIN CALCIUM 80 MG TABLET PO SCH (21:18)
[2019-04-12] MEDS: INSULIN REG, HUMAN 100 UNIT/ML 3 ML VIAL (PYX) SUBCUT SCH ×5 (00:59→21:27)
[2019-04-12] MEDS: MEROPENEM 1 GM in NORMAL SALINE 50 ML IV SCH ×3 (01:01→17:14)
[2019-04-12 04:51] LABS: HEMATOCRIT 36.9 % (37.9-51.0); HEMOGLOBIN 12.1 g/dL (13.5-17.0); MEAN CORPUSCULAR HEMOGLOBIN 28.6 pg (27.0-33.4); MEAN CORPUSCULAR VOLUME 87 fl (80-97); PLATELET COUNT 188 10^3/uL (150-450); RED BLOOD COUNT 4.25 10^6/uL (4.35-5.55); RED CELL DISTRIBUTION WIDTH 13.9 % (11.5-14.0); WHITE BLOOD COUNT 23.4 10^3/uL (4.0-10.5)
[2019-04-12 05:16] LABS: ANION GAP 12 (5-19); BLOOD UREA NITROGEN 15 mg/dL (7-20); CALCIUM 8.9 mg/dL (8.4-10.2); CARBON DIOXIDE 24 mmol/L (22-30); CHLORIDE 103 mmol/L (98-107); GLUCOSE 154 mg/dL (75-110); POTASSIUM 3.9 mmol/L (3.6-5.0)
[2019-04-12 05:24] LABS: ABSOLUTE LYMPHOCYTES# (MANUAL) 2.1 10^3/uL (0.5-4.7); ABSOLUTE MONOCYTES # (MANUAL) 0.9 10^3/uL (0.1-1.4); BASOPHILS % (MANUAL) 0 % (0-2); EOSINOPHILS % (MANUAL) 0 % (0-6); LYMPHOCYTES % (MANUAL) 9 % (13-45); MONOCYTES % (MANUAL) 4 % (3-13); PLATELET COMMENT ADEQUATE; RBC MORPHOLOGY COMMENT NORMO-CYTIC/CHROMIC; SEGMENTED NEUTROPHILS % (MAN) 87 % (42-78); TOTAL CELLS COUNTED 100
[2019-04-12] MEDS: DEXTROSE 5%-LACTATED RINGERS 1,000 ML IV PRN (05:36)
[2019-04-12] MEDS ORDERED: BUPIVACAINE HCL 0.25 % INJ/PF (2.5 MG/1 ML) 30 ML VIAL ONE (07:43)
[2019-04-12] MEDS ORDERED: FENTANYL CITRATE INJ/PF 100 MCG/2 ML AMPUL ONE (08:52)
[2019-04-12] MEDS ORDERED: MIDAZOLAM 2 MG/2 ML INJ ONE (08:52)
[2019-04-12] MEDS ORDERED: LIDOCAINE 2% INJ-PF (20 MG/ML) 10 ML AMPUL ONE (08:52)
[2019-04-12] MEDS ORDERED: DEXAMETHASONE SOD PHOSPHATE INJ 4 MG/1 ML VIAL ONE (08:53)
[2019-04-12] MEDS ORDERED: PROPOFOL INJ 200 MG/20 ML VIAL IV ONE (08:53)
[2019-04-12] MEDS ORDERED: ONDANSETRON HCL INJ/PF 4 MG/2 ML SDV ONE (08:53)
[2019-04-12] MEDS ORDERED: (PENDING PHARMACY ID) (Rosuvastatin Calcium [Crestor] 40 MG) PO SCH (10:00)
[2019-04-12] MEDS ORDERED: MEPERIDINE HCL/PF INJ 25 MG/1 ML DISP.SYRIN IV PRN (10:09)
[2019-04-12] MEDS ORDERED: FENTANYL CITRATE INJ/PF 100 MCG/2 ML AMPUL IV PRN ×3 (10:09)
[2019-04-12] MEDS ORDERED: PROMETHAZINE HCL INJ 25 MG/1 ML VIAL IV PRN ×2 (10:09)
[2019-04-12] MEDS ORDERED: DIPHENHYDRAMINE HCL 50 MG/ML VIAL IV PRN (10:09)
[2019-04-12] MEDS ORDERED: OXYCODONE-ACETAMINOPHEN 5-325 MG TABLET PO PRN ×2 (10:09)
[2019-04-12] MEDS ORDERED: MORPHINE SULFATE 10 MG/ML INJ IV PRN (10:09)
[2019-04-12] MEDS ORDERED: GLYCOPYRROLATE 1 MG/5 ML VIAL ONE (10:39)
[2019-04-12] MEDS ORDERED: NEOSTIGMINE METHYLSULFATE 10 MG/10 ML VIAL ONE (10:39)
[2019-04-12] MEDS ORDERED: KETOROLAC TROMETHAMINE 60 MG/2 ML SDV ONE (10:39)
[2019-04-12] MEDS ORDERED: HYDROMORPHONE HCL INJ/PF 2 MG/ML AMPULE ONE (11:18)
--- NOTE | 2019-04-12 12:17 | Operative Report ---
Operative Report DATE OF SURGERY: 04/12/19 PREOPERATIVE DIAGNOSIS: Acute cholecystitis with cholelithiasis. Diabetes danny itus POSTOPERATIVE DIAGNOSIS: Acute purulent,pre- gangrenous cholecystitis OPERATION: 1. Laparoscopic cholecystectomy with drain placement. 2. Extremely difficult modifier SURGEON: NITO RO ANESTHESIA: GA TISSUE REMOVED OR ALTERED: 1 gallbladder with contents including stones and pus COMPLICATIONS: None ESTIMATED BLOOD LOSS: 50 cc INTRAOPERATIVE FINDINGS: See below PROCEDURE: The patient was taken from the preop holding area to the main operating room where general anesthesia was induced. The abdomen was exposed, clipped of hair, prepped and draped sterile fashion. Arms were abducted. Surgical plan surgical timeout were conducted . Markings were made on the skin for for port fluoroscopy. The skin overlying the umbilicus was anesthetized 1% plain lidocaine. A vertical incision was made, and a Veress needle inserted uneventfully the peritoneal cavity. Pneumoperitoneum was established. Veress needle was removed, and a 5 mm port was inserted. Flexible viewing scope was inserted and under direct visualization, 3 additional ports were placed after anesthetizing the skin with 1% plain lidocaine. Findings were significant for pregangrenous gallbladder, distended violaceous and erythematous. It was now aspirated of approximately 60 cc of nearly white bile and pus. The gallbladder by placing a grasper on the fundus, however due to the limited space body habitus, despite elevating the patient into steep reverse Trendelenburg and airplane in him to the left side, working room was limited. Therefore we placed 1/5 port in the subcostal region and this was used as a fan retractor. We attempted to again exposure to the infundibulum but the edema was excessive. We were able to sweep the gastroduodenal structures away from the infundibulum however. I decided to convert to a top-down approach. Graspers were repositioned, would begin taking the gallbladder off of the inferior surface of the right lobe of the liver using hook electrocautery. This was extremely tedious. We eventually got into the gallbladder, aspirated a significant amount of pus. We were able to reestablish the appropriate plane and got back behind the posterior gallbladder wall and proceeded to manipulate the gallbladder off of the liver surface. Bleeding was minimal fortunately. By now two thirds of the gallbladder was off of the liver bed. Because of the small working space, and the large gallbladder, I elected to transect the gallbladder, and complete a partial cholecystectomy. This was done with the assistance of LigaSure device. Once this was accomplished, we able to get our graspers on the remaining third of the gallbladder, and manipulated under excellent visualization, and using the LigaSure device, continue removing it from the inferior surface of the liver. This proceeded methodically but tediously. Of late, working in a circumferential fashion, we got completely around the neck of the gallbladder. The gallbladder was now suspended by a cystic artery, and the cystic duct. We divided the cystic artery between clips and scissors. The remnant gallbladder was now suspended solely by the cystic duct. Multiple photos were taken. We now secured the duct with a single 0 suture and the cystic duct was divided on the gallbladder side. We now brought a and a specimen catch bag onto the field after stretching the fascia above the umbilicus. Both gallbladder remnants and loose stones were placed in the bag and specimens and bag were removed in their entirety and sent to pathology. We returned the peritoneal cavity check for bleeding there was none. Photos of the cystic duct and cystic artery stumps were photographed. We placed a large Daniel drain through 1 of the subcostal port sites and secured to the skin with a 2-0 Ethilon suture. It was trimmed the appropriate length and placed in the subhepatic space. We spent approximately 15 minutes irrigated the peritoneal cavity with multiple liters of saline. We leveled the patient and check for bleeding and any retained stones and we identified none. We felt the operation was complete. All ports removed under direct visualization, pneumoperitoneum evacuated, and wounds closed with 0 Vicryl at the fascial level, and 3-0 Vicryl at the skin level. Benzoin Steri-Strips applied. Drain hooked to bulb suction. Patient tolerated procedure well, taken recovery room in stable condition. Because of the cute nature of the operation, requiring 5 ports instead of the standard 4, requiring 3 assistance then set at the standard 1-2, and the 1-1/2 hours of operating time, we deemed this appropriate for the extremely difficult modifier.
[2019-04-12] MEDS: AMLODIPINE BESYLATE 2.5 MG TABLET PO SCH (13:49)
[2019-04-12] MEDS: PANTOPRAZOLE SODIUM 40 MG VIAL IV SCH (13:49)
--- NOTE | 2019-04-12 17:01 | PDOC PROGRESS REPORT ---
Subjective Progress Note for:: 04/12/19 Subjective:: Patient seen post op and examined. He remains hemodynamically stable. Complains of occasional back pain as well as abdominal pain. Reason For Visit: SIRS,ACUTE CHOLECYSTITIS Physical Exam Vital Signs: Temp Pulse Resp BP Pulse Ox 98.8 F 85 16 112/61 96 04/12/19 12:08 04/12/19 14:00 04/12/19 13:51 04/12/19 12:08 04/12/19 13:51 Intake & Output 04/11/19 04/12/19 04/13/19 06:59 06:59 06:59 Intake Total 3010 4150 1972 Output Total 1650 1400 375 Balance 1360 2750 1597 Weight 110.6 kg 109.8 kg General appearance: PRESENT: no acute distress, morbidly obese, well-developed, well-nourished Head exam: PRESENT: atraumatic, normocephalic Eye exam: PRESENT: conjunctiva pink, EOMI, PERRLA. ABSENT: scleral icterus Ear exam: PRESENT: normal external ear exam Mouth exam: PRESENT: tongue midline Neck exam: ABSENT: carotid bruit, JVD, lymphadenopathy, thyromegaly Respiratory exam: PRESENT: clear to auscultation blake. ABSENT: rales, rhonchi, wheezes Cardiovascular exam: PRESENT: RRR, +S1, +S2. ABSENT: diastolic murmur, rubs, systolic murmur Pulses: PRESENT: normal dorsalis pedis pul Vascular exam: PRESENT: normal capillary refill GI/Abdominal exam: PRESENT: normal bowel sounds, other - obese, drain in place with bloody fluid. ABSENT: distended, guarding, mass, organolmegaly, rebound, tenderness Rectal exam: PRESENT: deferred Extremities exam: PRESENT: full ROM. ABSENT: calf tenderness, clubbing, pedal edema Neurological exam: PRESENT: alert, awake, oriented to person, oriented to place, oriented to time, oriented to situation, CN II-XII grossly intact. ABSENT: motor sensory deficit Psychiatric exam: PRESENT: appropriate affect, normal mood. ABSENT: homicidal ideation, suicidal ideation Skin exam: PRESENT: dry, intact, warm. ABSENT: cyanosis, rash Results Laboratory Results: 04/12/19 04:11 04/12/19 04:11 03/05/20 03/05/20 04:11 04:11 WBC 23.4 H RBC 4.25 L Hgb 12.1 L Hct 36.9 L MCV 87 MCH 28.6 MCHC 33.0 RDW 13.9 Plt Count 188 Seg Neutrophils % Not Reportable Sodium 139.3 Potassium 3.9 Chloride 103 Carbon Dioxide 24 Anion Gap 12 BUN 15 Creatinine 0.61 Est GFR ( Amer) > 60 Glucose 154 H Calcium 8.9 04/10/19 04/10/19 04/10/19 06:35 07:05 07:05 Creatine Kinase Cancelled 62 Troponin I < 0.012 Impressions: Abdomen Ultrasound 04/10/19 06:40 IMPRESSION: GALLSTONES. NO OTHER SIGNIFICANT FINDING IN THE VISUALIZED ABDOMEN. Abdomen/Pelvis CT 04/10/19 09:16 IMPRESSION: 1. GALLSTONES. THERE IS SUGGESTION OF MILD INFLAMMATORY CHANGES IN THE PERICHOLECYSTIC TISSUES. MAY CONSIDER HEPATOBILIARY STUDY TO EVALUATE FOR POSSIBLE CHOLECYSTITIS. 2. NO OTHER SIGNIFICANT OR ACUTE FINDING IN THE ABDOMEN OR PELVIS ON CT SCAN WITH IV CONTRAST. Assessment and Plan - Diagnosis (1) SIRS due to infectious process without acute organ dysfunction Is this a current diagnosis for this admission?: Yes (2) Type 2 diabetes mellitus Qualifiers: Diabetes mellitus fruit thinner insulin use: unspecified fruit thinner insulin use status Is this a current diagnosis for this admission?: Yes (3) Cholelithiasis and acute cholecystitis without obstruction Is this a current diagnosis for this admission?: Yes (4) Fever Qualifiers: Fever type: unspecified Qualified Code(s): R50.9 - Fever, unspecified Is this a current diagnosis for this admission?: Yes (5) History of DVT (deep vein thrombosis) Is this a current diagnosis for this admission?: Yes Plan: Restart Theo as appropriate - Plan Summary Summary: Patient also possibly needs a sleep study test as he appears to have sleep apnea. He has been placed on CPAP. 3/ Patient is status post laparoscopic cholecystectomy with drain placement. He was found to have an acute purulent pregangrenous cholecystitis. Patient seen postop. He actually appears pretty stable. He is awake and alert and has been able to tolerate a diet
[2019-04-12] MEDS: INSULIN GLARGINE,HUM.REC.ANLOG 1,000 UNIT/10 ML VIAL SUBCUT SCH (21:27)
[2019-04-12] MEDS: ATORVASTATIN CALCIUM 80 MG TABLET PO SCH (21:27)
[2019-04-13] MEDS: MEROPENEM 1 GM in NORMAL SALINE 50 ML IV SCH ×3 (01:53→17:33)
[2019-04-13 05:51] LABS: ANION GAP 8 (5-19); BLOOD UREA NITROGEN 23 mg/dL (7-20); CALCIUM 8.1 mg/dL (8.4-10.2); CARBON DIOXIDE 28 mmol/L (22-30); CHLORIDE 103 mmol/L (98-107); GLUCOSE 215 mg/dL (75-110)
[2019-04-13 06:11] LABS: ABSOLUTE BASOPHILS # (AUTO) 0.2 10^3/uL (0.0-0.2); ABSOLUTE LYMPHOCYTES (AUTO) 1.4 10^3/uL (0.5-4.7); ABSOLUTE MONOCYTES (AUTO) 1.1 10^3/uL (0.1-1.4); ABSOLUTE NEUT (AUTO) 15.5 10^3/uL (1.7-8.2); BASOPHILS % (AUTO) 0.8 % (0-2); HEMATOCRIT 33.5 % (37.9-51.0); HEMOGLOBIN 11.4 g/dL (13.5-17.0); LYMPHOCYTES % (AUTO) 7.5 % (13-45); MEAN CORPUSCULAR HEMOGLOBIN 29.1 pg (27.0-33.4); MEAN CORPUSCULAR HGB CONC 34.1 g/dL (32.0-36.0); MEAN CORPUSCULAR VOLUME 85 fl (80-97); MONOCYTES % (AUTO) 6.2 % (3-13); PLATELET COUNT 206 10^3/uL (150-450); RED BLOOD COUNT 3.93 10^6/uL (4.35-5.55); SEGMENTED NEUTROPHILS % (AUTO) 85.5 % (42-78); TOTAL CELLS COUNTED % (AUTO) 100 %; WHITE BLOOD COUNT 18.2 10^3/uL (4.0-10.5)
[2019-04-13] MEDS: INSULIN REG, HUMAN 100 UNIT/ML 3 ML VIAL (PYX) SUBCUT SCH ×4 (07:51→21:18)
[2019-04-13] MEDS: INSULIN GLARGINE,HUM.REC.ANLOG 1,000 UNIT/10 ML VIAL SUBCUT SCH ×2 (09:33→21:17)
[2019-04-13] MEDS: AMLODIPINE BESYLATE 2.5 MG TABLET PO SCH (09:33)
[2019-04-13] MEDS: PANTOPRAZOLE SODIUM 40 MG VIAL IV SCH (09:33)
[2019-04-13] MEDS ORDERED: RINGERS SOLUTION,LACTATED 1,000 ML IV PRN (11:36)
--- NOTE | 2019-04-13 11:41 | PDOC PROGRESS REPORT ---
Subjective Progress Note for:: 04/13/19 Subjective:: Patient appears to be doing as well as expected. He is seen ambulating in the hallways. He is able to tolerate his diet today. His pain is manageable Reason For Visit: SIRS,ACUTE CHOLECYSTITIS Physical Exam Vital Signs: Temp Pulse Resp BP Pulse Ox 98.1 F 77 20 136/70 H 97 04/13/19 07:16 04/13/19 07:16 04/13/19 07:16 04/13/19 07:16 04/13/19 07:16 Intake & Output 04/12/19 04/13/19 04/14/19 06:59 06:59 06:59 Intake Total 4150 2930 Output Total 1400 835 Balance 2750 2095 Weight 109.8 kg 111.2 kg General appearance: PRESENT: no acute distress, morbidly obese Head exam: PRESENT: atraumatic Neck exam: PRESENT: full ROM. ABSENT: JVD Respiratory exam: PRESENT: clear to auscultation blake, unlabored. ABSENT: rhonchi Cardiovascular exam: PRESENT: RRR, +S1, +S2 GI/Abdominal exam: PRESENT: distended, soft, other - incision site clean. ABSENT: tenderness Rectal exam: PRESENT: deferred Neurological exam: PRESENT: alert, awake, oriented to person, oriented to place, oriented to time, oriented to situation, CN II-XII grossly intact. ABSENT: motor sensory deficit Psychiatric exam: PRESENT: appropriate affect Results Laboratory Results: 04/13/19 04:08 04/13/19 04:08 04/13/19 04/13/19 04:08 04:08 WBC 18.2 H RBC 3.93 L Hgb 11.4 L Hct 33.5 L MCV 85 MCH 29.1 MCHC 34.1 RDW 14.0 Plt Count 206 Seg Neutrophils % 85.5 H Sodium 139.1 Potassium 4.0 Chloride 103 Carbon Dioxide 28 Anion Gap 8 BUN 23 H Creatinine 0.95 Est GFR ( Amer) > 60 Glucose 215 H Calcium 8.1 L 04/10/19 04/10/19 04/10/19 06:35 07:05 07:05 Creatine Kinase Cancelled 62 Troponin I < 0.012 Impressions: Abdomen Ultrasound 04/10/19 06:40 IMPRESSION: GALLSTONES. NO OTHER SIGNIFICANT FINDING IN THE VISUALIZED ABDOMEN. Abdomen/Pelvis CT 04/10/19 09:16 IMPRESSION: 1. GALLSTONES. THERE IS SUGGESTION OF MILD INFLAMMATORY CHANGES IN THE PERICHOLECYSTIC TISSUES. MAY CONSIDER HEPATOBILIARY STUDY TO EVALUATE FOR POSSIBLE CHOLECYSTITIS. 2. NO OTHER SIGNIFICANT OR ACUTE FINDING IN THE ABDOMEN OR PELVIS ON CT SCAN WITH IV CONTRAST. Assessment and Plan - Diagnosis (1) SIRS due to infectious process without acute organ dysfunction Is this a current diagnosis for this admission?: Yes Plan: Resolved (2) Type 2 diabetes mellitus Qualifiers: Diabetes mellitus intermediate card tender insulin use: unspecified mcc insulin use status Is this a current diagnosis for this admission?: Yes Plan: Will gradually resume hypoglycemic agents as appropriate (3) Cholelithiasis and acute cholecystitis without obstruction Is this a current diagnosis for this admission?: Yes Plan: Pregangrenous (4) Fever Qualifiers: Fever type: unspecified Qualified Code(s): R50.9 - Fever, unspecified Is this a current diagnosis for this admission?: Yes (5) History of DVT (deep vein thrombosis) Is this a current diagnosis for this admission?: Yes Plan: Restart AC in am - Plan Summary Summary: Patient also possibly needs a sleep study test as he appears to have sleep apnea. He has been placed on CPAP. 04/11 Patient is status post laparoscopic cholecystectomy with drain placement. He was found to have an acute purulent pregangrenous cholecystitis. Patient seen postop. He actually appears pretty stable. He is awake and alert and has been able to tolerate a diet
--- NOTE | 2019-04-13 11:48 | PDOC PROGRESS REPORT ---
Subjective Progress Note for:: 04/13/19 Reason For Visit: SIRS,ACUTE CHOLECYSTITIS Patient ambulating in the halls, voiding, no bowel function yet. No pain. Physical Exam Vital Signs: Temp Pulse Resp BP Pulse Ox 98.0 F 87 18 129/62 H 94 04/13/19 11:39 04/13/19 11:39 04/13/19 11:39 04/13/19 11:39 04/13/19 11:39 Intake & Output 04/12/19 04/13/19 04/14/19 06:59 06:59 06:59 Intake Total 4150 2930 Output Total 1400 835 Balance 2750 2095 Weight 109.8 kg 111.2 kg General appearance: PRESENT: no acute distress GI/Abdominal exam: PRESENT: other - Appropriately tender. Incisions dry with Steri-Strips intact. Sanguinous slightly serous drainage coming from drain, 50 cc per shift Results Laboratory Results: 04/13/19 04:08 04/13/19 04:08 04/13/19 04/13/19 04:08 04:08 WBC 18.2 H RBC 3.93 L Hgb 11.4 L Hct 33.5 L MCV 85 MCH 29.1 MCHC 34.1 RDW 14.0 Plt Count 206 Seg Neutrophils % 85.5 H Sodium 139.1 Potassium 4.0 Chloride 103 Carbon Dioxide 28 Anion Gap 8 BUN 23 H Creatinine 0.95 Est GFR ( Amer) > 60 Glucose 215 H Calcium 8.1 L 04/10/19 04/10/19 04/10/19 06:35 07:05 07:05 Creatine Kinase Cancelled 62 Troponin I < 0.012 Impressions: Abdomen Ultrasound 04/10/19 06:40 IMPRESSION: GALLSTONES. NO OTHER SIGNIFICANT FINDING IN THE VISUALIZED ABDOMEN . Abdomen/Pelvis CT 04/10/19 09:16 IMPRESSION: 1. GALLSTONES. THERE IS SUGGESTION OF MILD INFLAMMATORY CHANGES IN THE PERICHOLECYSTIC TISSUES. MAY CONSIDER HEPATOBILIARY STUDY TO EVALUATE FOR POSSIBLE CHOLECYSTITIS. 2. NO OTHER SIGNIFICANT OR ACUTE FINDING IN THE ABDOMEN OR PELVIS ON CT SCAN WITH IV CONTRAST. Assessment & Plan - Diagnosis (1) Cholelithiasis and acute cholecystitis without obstruction Is this a current diagnosis for this admission?: Yes Plan: Impression: Patient is 1 day status post laparoscopic cholecystectomy drain placement for acute and chronic cholecystitis and cholelithiasis, doing well, excellent clinical course, leukocytosis, blood sugar controlled Recommendations: 1. Leave drain in for now; patient may go home with drain pending drainage output in the next 24 hours. Do not resume Xarelto today 2. May taper IV antibiotics 3. Anticipate discharge home in the next 24 to 36 hours. - Time Time Spent: 30 to 50 Minutes
[2019-04-13] MEDS: RIVAROXABAN 10 MG TABLET PO SCH (12:01)
[2019-04-13] MEDS: ATORVASTATIN CALCIUM 80 MG TABLET PO SCH (21:17)
[2019-04-14] MEDS: MEROPENEM 1 GM in NORMAL SALINE 50 ML IV SCH ×2 (02:16→09:45)
[2019-04-14 06:08] LABS: ABSOLUTE BASOPHILS # (AUTO) 0.1 10^3/uL (0.0-0.2); ABSOLUTE EOSINOPHILS # (AUTO) 0.3 10^3/uL (0.0-0.6); ABSOLUTE LYMPHOCYTES (AUTO) 2.2 10^3/uL (0.5-4.7); ABSOLUTE NEUT (AUTO) 8.4 10^3/uL (1.7-8.2); BASOPHILS % (AUTO) 0.7 % (0-2); EOSINOPHILS % (AUTO) 2.3 % (0-6); HEMATOCRIT 33.7 % (37.9-51.0); HEMOGLOBIN 11.5 g/dL (13.5-17.0); LYMPHOCYTES % (AUTO) 18.3 % (13-45); MEAN CORPUSCULAR HEMOGLOBIN 29.5 pg (27.0-33.4); MEAN CORPUSCULAR HGB CONC 34.1 g/dL (32.0-36.0); MEAN CORPUSCULAR VOLUME 86 fl (80-97); MONOCYTES % (AUTO) 8.5 % (3-13); PLATELET COUNT 226 10^3/uL (150-450); RED CELL DISTRIBUTION WIDTH 14.2 % (11.5-14.0); SEGMENTED NEUTROPHILS % (AUTO) 70.2 % (42-78); TOTAL CELLS COUNTED % (AUTO) 100 %
[2019-04-14 06:31] LABS: ANION GAP 7 (5-19); BLOOD UREA NITROGEN 20 mg/dL (7-20); CALCIUM 7.8 mg/dL (8.4-10.2); CARBON DIOXIDE 28 mmol/L (22-30); CHLORIDE 104 mmol/L (98-107); GLUCOSE 188 mg/dL (75-110); POTASSIUM 4.2 mmol/L (3.6-5.0)
[2019-04-14] MEDS: INSULIN REG, HUMAN 100 UNIT/ML 3 ML VIAL (PYX) SUBCUT SCH ×2 (07:41→11:59)
[2019-04-14] MEDS: AMLODIPINE BESYLATE 2.5 MG TABLET PO SCH (09:45)
[2019-04-14] MEDS: RIVAROXABAN 10 MG TABLET PO SCH (09:45)
[2019-04-14] MEDS: INSULIN GLARGINE,HUM.REC.ANLOG 1,000 UNIT/10 ML VIAL SUBCUT SCH (09:45)
[2019-04-14] MEDS: PANTOPRAZOLE SODIUM 40 MG VIAL IV SCH (09:45)
--- NOTE | 2019-04-14 12:41 | PDOC PROGRESS REPORT ---
Subjective Progress Note for:: 04/14/19 Reason For Visit: SIRS,ACUTE CHOLECYSTITIS Physical Exam Vital Signs: Temp Pulse Resp BP Pulse Ox 98.0 F 91 16 142/58 H 94 04/14/19 11:20 04/14/19 11:20 04/14/19 11:20 04/14/19 11:20 04/14/19 11:20 Intake & Output 04/13/19 04/14/19 04/15/19 06:59 06:59 07:59 Intake Total 2930 1125 240 Output Total 835 470 Balance 2095 655 240 Weight 111.2 kg 112.7 kg Results Laboratory Results: 04/14/19 05:17 04/14/19 05:17 04/14/19 04/14/19 05:17 05:17 WBC 12.0 H RBC 3.90 L Hgb 11.5 L Hct 33.7 L MCV 86 MCH 29.5 MCHC 34.1 RDW 14.2 H Plt Count 226 Seg Neutrophils % 70.2 Sodium 139.3 Potassium 4.2 Chloride 104 Carbon Dioxide 28 Anion Gap 7 BUN 20 Creatinine 0.88 Est GFR ( Amer) > 60 Glucose 188 H Calcium 7.8 L 04/10/19 04/10/19 04/10/19 06:35 07:05 07:05 Creatine Kinase Cancelled 62 Troponin I < 0.012 Impressions: Abdomen Ultrasound 04/10/19 06:40 IMPRESSION: GALLSTONES. NO OTHER SIGNIFICANT FINDING IN THE VISUALIZED ABDOMEN. Abdomen/Pelvis CT 04/10/19 09:16 IMPRESSION: 1. GALLSTONES. THERE IS SUGGESTION OF MILD INFLAMMATORY CHANGES IN THE PERICHOLECYSTIC TISSUES. MAY CONSIDER HEPATOBILIARY STUDY TO EVALUATE FOR POSSIBLE CHOLECYSTITIS. 2. NO OTHER SIGNIFICANT OR ACUTE FINDING IN THE ABDOMEN OR PELVIS ON CT SCAN WITH IV CONTRAST. Assessment & Plan - Diagnosis (1) Cholelithiasis and acute cholecystitis without obstruction Is this a current diagnosis for this admission?: Yes - Plan Summary Plan Summary: This is a 64-year-old male status post laparoscopic cholecystectomy for acute cholecystitis. The patient has a MICHELLE drain in place, that is minimally productive. The patient has no sign of active bleeding. He is tolerating a regular diet, and his blood thinners were restarted. At this time, I believe the patient is fit for discharge from a surgical standpoint. Surgery will sign off at this time. I have encouraged the patient to avoid any strenuous activity or lifting more than 10 pounds for 2 weeks. Follow-up with [facility] in 7 to 10 days for drain removal.
--- NOTE | 2019-04-14 12:53 | PDOC DISCHARGE SUMMARY ---
Impression - Admit/DC Date/PCP Admission Date/Primary Care Provider: 04/10/19 11:24 KYARA GLORIA MD Discharge Date: 04/14/19 - Discharge Diagnosis (1) SIRS due to infectious process without acute organ dysfunction Is this a current diagnosis for this admission?: Yes (2) Type 2 diabetes mellitus Is this a current diagnosis for this admission?: Yes (3) Cholelithiasis and acute cholecystitis without obstruction Is this a current diagnosis for this admission?: Yes (4) Fever Is this a current diagnosis for this admission?: Yes (5) History of DVT (deep vein thrombosis) Is this a current diagnosis for this admission?: Yes - Assessment Summary: Patient also possibly needs a sleep study test as he appears to have sleep apnea. He has been placed on CPAP. 04/11 Patient is status post laparoscopic cholecystectomy with drain placement. He was found to have an acute purulent pregangrenous cholecystitis. Patient seen postop. He actually appears pretty stable. He is awake and alert and has been able to tolerate a diet - Additional Information Resuscitation Status: Full Code Discharge Diet: Diabetic Discharge Activity: Activity As Tolerated Referrals: TRISHA GLORIA MD [NO LOCAL MD] - ( office will call back with appointment. [phone] @ 1991) NITO RO MD [ACTIVE STAFF] - (Follow up 7 to 10days for drain removal) Prescriptions: Amoxicillin/Potassium Clav [Augmentin 875-125 Tablet] 1 tab PO BID #10 tab Home Medications: Amlodipine Besylate [Norvasc 2.5 mg Tablet] 2.5 mg PO DAILY 04/10/19 Dapagliflozin/Metformin HCl [Xigduo Xr 5 mg-1,000 mg Tablet] 1 each PO BID 04/10/19 Esomeprazole Magnesium [Nexium] 20 mg PO DAILY 04/10/19 Insulin Degludec [Tresiba Flextouch U-200] 60 unit SQ QHS 04/10/19 Losartan/Hydrochlorothiazide [Losartan-Hctz 100-25 mg Tab] 1 each PO DAILY 04/10/19 Rivaroxaban [Xarelto] 20 mg PO DAILY 04/10/19 Rosuvastatin Calcium [Crestor] 40 mg PO DAILY 04/10/19 Semaglutide [Ozempic] 1 mg SQ TU@1000 04/10/19 Amoxicillin/Potassium Clav [Augmentin 875-125 Tablet] 1 tab PO BID #10 tab 04/14/19 History of Present Illiness History of Present Illness: KAILEE KIRK is a 63 year old male Presents to the emergency room with abdominal complaints as above. He said he was feeling well till yesterday. He started having abdominal pain. He has been unable to eat much. He also has associated nausea and vomiting. Patient denies any prior such pain in the past. He came to the emergency room where he was found to be tachycardic and ultimately had imaging studies done which revealed cholelithiasis with CT scan revealing possible inflammation. Patient's white count was found to be 30,000 and was tachycardic but really afebrile. His blood pressure was borderline low. He has been treated with intravenous fluids and has received Invanz Hospital Course Hospital Course: Patient was admitted with abdominal pain and found to have likely acute cholecystitis. He had a laparoscopic cholecystectomy done with a MICHELLE drain placed that is been minimally productive. He has been otherwise hemodynamically stable. He has been tolerating his diet and his blood sugars have been controlled despite the fact that he had been off his home hypoglycemic agents which are numerous. His Xarelto has been restarted with no evidence of bleeding. He has been discharged home today for follow-up in surgical clinic in 7 to 10 days for drain removal Patient was treated with intravenous meropenem while in hospital. His initial white count was 30,000. His gallbladder was found to be pregangrenous. He is being discharged home on oral Augmentin. His blood sugars were also found to be actually well controlled despite the fact that he was taken off his hypoglycemic agents except sliding scale insulin. Patient has been restarted back on his hypoglycemic agent however he is advised to monitor his blood sugar and adjust as appropriate. He is to follow-up with his manager long term care for further management Physical Exam Vital Signs: Temp Pulse Resp BP Pulse Ox 98.0 F 91 16 142/58 H 94 04/14/19 11:20 04/14/19 11:20 04/14/19 11:20 04/14/19 11:20 04/14/19 11:20 Intake & Output 04/13/19 04/14/19 04/15/19 06:59 06:59 07:59 Intake Total 2930 1125 240 Output Total 835 470 Balance 2095 655 240 Weight 111.2 kg 112.7 kg General appearance: PRESENT: no acute distress, cooperative, morbidly obese Head exam: PRESENT: atraumatic Neck exam: ABSENT: JVD Respiratory exam: PRESENT: clear to auscultation blake, unlabored. ABSENT: rhonchi, wheezes GI/Abdominal exam: PRESENT: normal bowel sounds, soft, other - MICHELLE drain in place incision intact Rectal exam: PRESENT: deferred Neurological exam: PRESENT: alert, awake, oriented to person, oriented to place, oriented to time, oriented to situation Psychiatric exam: PRESENT: appropriate affect Results Laboratory Results: WBC 12.0 10^3/uL (4.0-10.5) H 04/14/19 05:17 RBC 3.90 10^6/uL (4.35-5.55) L 04/14/19 05:17 Hgb 11.5 g/dL (13.5-17.0) L 04/14/19 05:17 Hct 33.7 % (37.9-51.0) L 04/14/19 05:17 MCV 86 fl (80-97) 04/14/19 05:17 MCH 29.5 pg (27.0-33.4) 04/14/19 05:17 MCHC 34.1 g/dL (32.0-36.0) 04/14/19 05:17 RDW 14.2 % (11.5-14.0) H 04/14/19 05:17 Plt Count 226 10^3/uL (150-450) 04/14/19 05:17 Lymph % (Auto) 18.3 % (13-45) 04/14/19 05:17 [place] % (Auto) 8.5 % (3-13) 04/14/19 05:17 Eos % (Auto) 2.3 % (0-6) 04/14/19 05:17 Baso % (Auto) 0.7 % (0-2) 04/14/19 05:17 Absolute Neuts (auto) 8.4 10^3/uL (1.7-8.2) H 04/14/19 05:17 Absolute Lymphs (auto) 2.2 10^3/uL (0.5-4.7) 04/14/19 05:17 Absolute Monos (auto) 1.0 10^3/uL (0.1-1.4) 04/14/19 05:17 Absolute Eos (auto) 0.3 10^3/uL (0.0-0.6) 04/14/19 05:17 Absolute Basos (auto) 0.1 10^3/uL (0.0-0.2) 04/14/19 05:17 Total Counted 100 04/12/19 04:11 Seg Neutrophils % 70.2 % (42-78) 04/14/19 05:17 Seg Neuts % (Manual) 87 % (42-78) H 04/12/19 04:11 Lymphocytes % (Manual) 9 % (13-45) L 04/12/19 04:11 Monocytes % (Manual) 4 % (3-13) 04/12/19 04:11 Eosinophils % (Manual) 0 % (0-6) 04/12/19 04:11 Basophils % (Manual) 0 % (0-2) 04/12/19 04:11 Abs Neuts (Manual) 20.4 10^3/uL (1.7-8.2) H 04/12/19 04:11 Abs Lymphs (Manual) 2.1 10^3/uL (0.5-4.7) 04/12/19 04:11 Abs Monocytes (Manual) 0.9 10^3/uL (0.1-1.4) 04/12/19 04:11 Absolute Eos (Manual) 0.0 10^3/uL (0.0-0.6) 04/12/19 04:11 Abs Basophils (Manual) 0.0 10^3/uL (0.0-0.2) 04/12/19 04:11 Toxic Granulation SLIGHT 04/10/19 06:35 Toxic Vacuolation PRESENT 04/10/19 06:35 Platelet Comment ADEQUATE 04/12/19 04:11 Poikilocytosis SLIGHT 04/10/19 06:35 Ovalocytes SLIGHT 04/10/19 06:35 RBC Morph Comment NORMO-CYTIC/CHROMIC 04/12/19 04:11 Sodium 139.3 mmol/L (137-145) 04/14/19 05:17 Potassium 4.2 mmol/L (3.6-5.0) 04/14/19 05:17 Chloride 104 mmol/L (98-107) 04/14/19 05:17 Carbon Dioxide 28 mmol/L (22-30) 04/14/19 05:17 Anion Gap 7 (5-19) 04/14/19 05:17 BUN 20 mg/dL (7-20) 04/14/19 05:17 Creatinine 0.88 mg/dL (0.52-1.25) 04/14/19 05:17 Est GFR ( Amer) > 60 (>60) 04/14/19 05:17 Est GFR (Non-Af Amer) Cancelled 04/10/19 06:35 Est GFR (MDRD) Non-Af > 60 (>60) 04/14/19 05:17 Glucose 188 mg/dL (75-110) H 04/14/19 05:17 POC Glucose 189 mg/dL (70-110) H 04/14/19 11:20 Lactic Acid 0.9 mmol/L (0.7-2.1) 04/10/19 14:39 Calcium 7.8 mg/dL (8.4-10.2) L 04/14/19 05:17 Total Bilirubin 0.6 mg/dL (0.2-1.3) 04/11/19 04:01 Direct Bilirubin 0.4 mg/dL (0.0-0.4) 04/11/19 04:01 Neonat Total Bilirubin Not Reportable 04/11/19 04:01 Neonat Direct Bilirubin Not Reportable 04/11/19 04:01 Neonat Indirect Bili Not Reportable 04/11/19 04:01 AST 25 U/L (17-59) 04/11/19 04:01 ALT 16 U/L (<50) 04/11/19 04:01 Alkaline Phosphatase 111 U/L (38-126) 04/11/19 04:01 Creatine Kinase 62 U/L (55-170) 04/10/19 07:05 Troponin I < 0.012 ng/mL 04/10/19 07:05 Total Protein 6.3 g/dL (6.3-8.2) 04/11/19 04:01 Albumin 3.2 g/dL (3.5-5.0) L 04/11/19 04:01 Lipase 16.7 U/L (23-300) L 04/10/19 07:05 EGFR Cancelled 04/10/19 06:35 Urine Color YELLOW 04/10/19 08:35 Urine Appearance SLIGHTLY-CLOUDY 04/10/19 08:35 Urine pH 5.0 (5.0-9.0) 04/10/19 08:35 Ur Specific [place] 1.021 04/10/19 08:35 Urine Protein 100 mg/dL (NEGATIVE) H 04/10/19 08:35 Urine Glucose (UA) >=500 mg/dL (NEGATIVE) H 04/10/19 08:35 Urine Ketones TRACE mg/dL (NEGATIVE) H 04/10/19 08:35 Urine Blood SMALL (NEGATIVE) H 04/10/19 08:35 Urine Nitrite NEGATIVE (NEGATIVE) 04/10/19 08:35 Urine Bilirubin NEGATIVE (NEGATIVE) 04/10/19 08:35 Urine Urobilinogen NEGATIVE mg/dL (<2.0) 04/10/19 08:35 Ur Leukocyte Esterase NEGATIVE (NEGATIVE) 04/10/19 08:35 Urine WBC (Auto) 3 /HPF 04/10/19 08:35 Urine RBC (Auto) 2 /HPF 04/10/19 08:35 U Hyaline Cast (Auto) 6 /LPF 04/10/19 08:35 Urine Bacteria (Auto) TRACE /HPF 04/10/19 08:35 Squamous Epi Cells Auto <1 /HPF 04/10/19 08:35 Urine Mucus (Auto) OCC /LPF 04/10/19 08:35 Urine Ascorbic Acid NEGATIVE (NEGATIVE) 04/10/19 08:35 Slides for Path Review PATHOLOGIST REVIEWED 04/10/19 06:35 04/10/19 07:05 Troponin I < 0.012 Impressions: Abdomen Ultrasound 04/10/19 06:40 IMPRESSION: GALLSTONES. NO OTHER SIGNIFICANT FINDING IN THE VISUALIZED ABDOMEN. Abdomen/Pelvis CT 04/10/19 09:16 IMPRESSION: 1. GALLSTONES. THERE IS SUGGESTION OF MILD INFLAMMATORY CHANGES IN THE PERICHOLECYSTIC TISSUES. MAY CONSIDER HEPATOBILIARY STUDY TO EVALUATE FOR POSSIBLE CHOLECYSTITIS. 2. NO OTHER SIGNIFICANT OR ACUTE FINDING IN THE ABDOMEN OR PELVIS ON CT SCAN WITH IV CONTRAST. Stroke Is this a Stroke Patient?: No Acute Heart Failure - Is this a Heart Failure Patient?: No
[2019-04-14 13:03] VITALS: BP 104/51
== END 2019-04-14 13:45 | disposition home or self-care (01) | DRG 413 ==
LOC: ER 05:38 → EH 11:24 → 3N 13:50
PROVIDERS: ADMIT Internal Medicine; ATTEND Internal Medicine
PROC: 0F9940Z Drainage of Common Bile Duct with Drainage Device, Percutaneous Endoscopic Approach (ICD-10-PCS; 2019-04-12)
PROC: 0FT44ZZ Resection of Gallbladder, Percutaneous Endoscopic Approach (ICD-10-PCS; principal; 2019-04-12 09:00)
DX: K80.00 Calculus of gallbladder with acute cholecystitis without obstruction (principal); K82.A1 Gangrene of gallbladder in cholecystitis; I10 Essential (primary) hypertension; E11.65 Type 2 diabetes mellitus with hyperglycemia; E78.00 Pure hypercholesterolemia, unspecified; Z79.01 Long term (current) use of anticoagulants; Z79.84 Long term (current) use of oral hypoglycemic drugs; Z79.4 Long term (current) use of insulin; Z86.718 Personal history of other venous thrombosis and embolism
CPT/HCPCS: 36415; 74177; 76705; 790; 80048; 80053; 81001; 82550; 82962; 83605; 83690; 84484; 85025; 87040; 88304; 93005; 93010; 94660; 96361; 96365; 96375; 99291; C9113; J1100; J1170; J1335; J1815; J1885; J2185; J2250; J2270; J2405; J2704; J2710; J3010; J3490; J7030; J7120; J7121

== ENCOUNTER → 2020-03-03 | Outpatient (CLI) | payer OTHER ==
[~2020-03-03] MED LIST: COVID-19 VACCINE (PFIZER)/PF 30 MCG/0.3 ML VIAL IM ONE; EPINEPHRINE INJ/PF 1 MG/1 ML AMPULE IM PRN
== END ==
LOC: EMPHEALTH 07:26
PROVIDERS: ATTEND Internal Medicine
DX: Z23 Encounter for immunization (principal)
CPT/HCPCS: 91300